=== PATIENT | female | born 1960 | race Caucasian/White ===

== ENCOUNTER 2020-12-08 00:29 | Emergency (ER) | payer OTHER ==
[2020-12-08 02:04] LABS: BASOPHIL 0.4 % (0-2); BILIRUBIN NEGATIVE (NEGATIVE); BLOOD 3+ Ery/uL (NEGATIVE); CLARITY CLEAR (CLEAR); COLOR YELLOW (YELLOW); GLUCOSE (U) NORMAL (NORMAL); HCT 37.6 % (37.0-47.0); HGB 12.4 g/dl (12.5-16.0); LEUKOCYTES NEGATIVE Leu/uL (NEGATIVE); LYMPHOCYTE 23.5 % (15-48); MCH 28.8 pg (25.0-31.0); MCV 87.4 fL (78.0-100.0); MONOCYTE 6.2 % (0-12); MPV 9.4 fL (6.0-9.5); NEUTROPHIL 67.5 % (41-80); NITRITE NEGATIVE (NEGATIVE); NRBC 0; PLT 202 K/uL (150-400); PROTEIN NEGATIVE (NEGATIVE); RDW 13.6 % (11.5-14.0); SPECIFIC GRAVITY >=1.030 (1.001-1.030); UROBILINOGEN 0.2 mg/dL (0.2-1.0); WBC 9.4 K/uL (4.0-10.5); pH 5.5 (5.0-9.0)
[2020-12-08 02:11] LABS: BACTERIA 1+; URINARY RBC TNTC
[2020-12-08 02:12] LABS: MUCOUS TRACE
[2020-12-08 02:33] LABS: ALBUMIN 3.8 g/dL (3.4-5.0); BILIRUBIN - TOTAL 0.3 mg/dL (0.2-1.0); BUN/CREAT RATIO (CALC) 28.9 RATIO; CREATININE 0.76 mg/dL (0.51-0.95); GLOBULIN (CALCULATION) 3.4 g/dL; POTASSIUM 3.8 mmol/L (3.5-5.1); TOTAL PROTEIN 7.2 g/dL (6.4-8.2)
[2020-12-08] MEDS ORDERED: IBUPROFEN800 MG PO (04:32)
[2020-12-08] MEDS ORDERED: ONDANSETRON ODT4 MG SL (04:32)
[2020-12-08] MEDS ORDERED: NORCO 5-325 TA1 EACH PO (04:32)
[2020-12-08] MEDS ORDERED: FLOMAX0.4 MG PO (04:32)
== END 2020-12-08 04:55 | disposition home or self-care (01) ==
LOC: FER 00:29
PROVIDERS: Emergency Medicine Emergency Medical Services
DX: N13.2 Hydronephrosis with renal and ureteral calculous obstruction (principal); I10 Essential (primary) hypertension; J45.909 Unspecified asthma, uncomplicated; K21.9 Gastro-esophageal reflux disease without esophagitis; Z88.1 Allergy status to other antibiotic agents; Z90.710 Acquired absence of both cervix and uterus; Z79.899 Other long term (current) drug therapy; Z79.82 Long term (current) use of aspirin
CPT/HCPCS: 36415; 80053; 81001; 83690; 85025; J1170; J1885; J2405; J7030